=== PATIENT | female | born 1935 | race Caucasian/White ===

== ENCOUNTER 2018-12-04 11:28 | Emergency (ER) | payer MEDICARE ==
[2018-12-04 11:48] VITALS: O2SAT 100
--- NOTE | 2018-12-04 12:02 | ERPHSYRPT ---
- History of Present Illness Time Seen by Provider: 12/04/18 11:45 Source: patient, EMS Exam Limitations: no limitations Patient Subjective Stated Complaint: Dialysis center [facility] states "She missed last tue and tuesday and came for dialysis today. She stated she missed due to haveing rectal bleeding. She is 7 kg over her weight and we took off 3.5 L but she kind of passed out so we gave her 1 L back. Now she is awake and complaining of chest pain and difficulty breathing.". PT stated "I am a little dizzy. I do not hurt anymore. I have had rectal bleeding all week." Triage Nursing Assessment: Pt presented VIA SCAT 2 and placed in room 3. PT presented alert and oriented X 3, skin pale, cool, dry. Pt able to speak in clear full sentences Pt in no apparent respiratory distress. Physician History: 83 y/o white female with renal failure on dialysis presents after syncopal episode following dialysis removal of 3.5 liters. pt given back one liter of fluid. symptoms improve but then pt complained of mild soa and mild nonradiating central substernal cp. these sx have resolved. pt did miss dialysis last week because of rectal bleeding. pt is a resident from [facility]. her pcp is dr. Mendenhall, director payment dr. 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 Arambula. Witnessed: other (by healthcare providers at dialysis center) Prior Episodes: single episode today Timing/Duration: today Precipitating Factors: other (dialysis) Loss of Consciousness: no loss of consciousness Charcter of event(s): almost passed out Allergies/Adverse Reactions: metformin Allergy (Unknown, Verified 01/28/15 06:27) ketorolac tromethamine [From Toradol] Allergy (Verified 01/28/15 06:27) Hives adhesive Adverse Reaction (Verified 01/28/15 06:27) Blisters Home Medications: Gabapentin 300 mg [Neurontin 300 mg] 300 mg PO UD 02/09/13 [History] Multivitamin [Multi-Vitamin Daily] 1 each PO DAILY 02/09/13 [History] Atorvastatin Calcium [Lipitor] 80 mg PO DAILY 02/12/13 [History] Apixaban [Eliquis] 2.5 mg PO BID 06/07/14 [History] Furosemide 120 mg PO UD 06/07/14 [History] PANTOPRAZOLE 40 mg Tablet [Protonix 40MG Tablet] 40 mg PO DAILY 06/07/14 [ History] Potassium Chloride 10 Meq Tab* [Klor Con 10 MEQ] 10 meq PO UD 06/07/14 [ History] Acetaminophen 325 mg [Tylenol 325 mg] 2 tab PO Q4HPRN PRN 01/28/15 [ History] Albuterol 2.5 mg/3 ml Neb [Proventil 2.5 mg/3 ml Neb] 1.25 mg IH Q4HPRN PRN 01/28/15 [History] Docusate Sodium 100 mg [Colace 100 MG] 100 mg PO DAILY PRN 01/28/15 [ History] Fluticasone Propionate [Flonase Nasal] 1 spray IN DAILY 01/28/15 [History] Hydrocodone Bit/Acetaminophen [Fre[place] 5-325 Tablet] 1 - 2 tab PO Q4HPRN PRN 01/28 [History] Ipratropium/Albuterol Sulfate [Combivent Respimat Common Canister] 1 puff IH BID 01/28/15 [History] Nitroglycerin 0.4 mg Tablet [Nitrostat 0.4 MG Tablet] 0.4 mg SL UD [History] Ondansetron HCl [Zofran] 4 mg PO Q4HPRN PRN 01/28/15 [History] Sertraline HCl 50 mg [Zoloft 50 mg Tablet] 50 mg PO HS 01/28/15 [History] Sevelamer Carbonate [Renvela] 800 mg PO TID 01/28/15 [History] Sodium Chloride [Saline Nasal Gideon] 30 ml NS QID PRN 01/28/15 [History] raNITIdine HCl [Ranitidine HCl] 150 mg PO DAILY 01/28/15 [History] Hx Tetanus, Diphtheria Vaccination/Date Given: No Hx Influenza Vaccination/Date Given: Yes Hx Pneumococcal Vaccination/Date Given: Yes Immunizations Up to Date: Yes - Past Medical History Pertinent Past Medical History: Yes Neurological History: No Pertinent History, Peripheral Neuropathy ENT History: No Pertinent History Cardiac History: Angina, Arrhythmia, Coronary Artery Disease, Hypertension, Myocardial Infarction ([place]) Respiratory History: Asthma, CHF, COPD, Emphysema, Sleep Apnea Endocrine Medical History: Diabetes Type II Musculoskeletal History: No Pertinent History GI Medical History: Colitis, Esophageal Disorder, GERD History: Dialysis, Other Psycho-Social History: Depression Female Reproductive Disorders: No Pertinent History Other Medical History: Abdominal aortic aneursym - Past Surgical History Past Surgical History: Yes Neuro Surgical History: No Pertinent History Cardiac: No Pertinent History Respiratory: No Pertinent History Gastrointestinal: No Pertinent History Genitourinary: No Pertinent History Musculoskeletal: No Pertinent History Female Surgical History: No Pertinent History Other Surgical History: Ruptured cyst on ovary. Dialysis fistula placed in left arm. Vocal cord cystBreast surgery on inverted nipples - Social History Smoking Status: Former smoker Exposure to second hand smoke: No Drug Use: none Patient Lives Alone: No - Female History Hx Now: No - Review of Systems Constitutional: Weakness Eyes: No Symptoms Ears, Nose, & Throat: No Symptoms Respiratory: No Symptoms Cardiac: Syncope Abdominal/Gastrointestinal: No Symptoms Genitourinary Symptoms: No Symptoms Musculoskeletal: No Symptoms Skin: No Symptoms Neurological: Lethargy Psychological: No Symptoms Endocrine: No Symptoms Hematologic/Lymphatic: No Symptoms Immunological/Allergic: No Symptoms All Other Systems: Reviewed and Negative Physical Exam - Nursing Vital Signs Nursing Vital Signs: Initial Vital Signs Temperature 98.1 F 12/04/18 11:29 Pulse Rate 102 H 12/04/18 11:29 Respiratory Rate 22 12/04/18 11:29 Blood Pressure 105/74 12/04/18 11:29 O2 Sat by Pulse Oximetry 100 12/04/18 11:29 Pain Scale Pain Intensity 0 - Justin Coma Scale Best Eye Response (Milner): (4) open spontaneously Best Verbal Response (Justin): (5) oriented Best Motor Response (Justin): (6) obeys commands Justin Total: 15 - Physical Exam General Appearance: lethargy (rousable and answers questions appropriately), obese Eye Exam: bilateral eye: normal inspection, PERRL, EOMI Ears, Nose, Throat Exam: normal ENT inspection, dry mucous membranes Neck Exam: normal inspection, non-tender, supple, full range of motion Respiratory: normal breath sounds, chest tenderness (brief episode. 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 new prolonged qrs. no acute ischemic changes. st segment changes have resolved. ) Ordered Tests: Active Orders 24 hr Category Date Time Status EKG-ER Only STAT Care 12/04/18 12:02 Active IV Insertion STAT Care 12/04/18 12:02 Active CBC W DIFF Stat Lab 12/04/18 12:25 Completed CMP Stat Lab 12/04/18 12:25 Completed Manual Differential NC Stat Lab 12/04/18 12:25 Completed PROTIME WITH INR Stat Lab 12/04/18 12:25 Completed TROPONIN Q3H Lab 12/04/18 12:25 Completed TROPONIN Q3H Lab 12/04/18 15:15 Ordered TROPONIN Q3H Lab 12/04/18 18:15 Ordered TROPONIN Q3H Lab 12/04/18 21:15 Ordered TROPONIN Q3H Lab 12/05/18 00:15 Ordered Medication Summary Generic Name Dose Route Start Last Admin Trade Name Juanq PRN Reason Stop Dose Admin Sodium Chloride 1,000 mls @ 50 mls/hr 12/04/18 12:15 12/04/18 12:06 Sodium Chloride 0.9% 1000 Ml IV 01/03/19 12:14 50 mls/hr .Q20H MATTHEW Administration Lab/Rad Data: Laboratory Result Diagrams 12/04/18 12:25 12/04/18 12:25 Laboratory Results 12/04/18 12/04/18 12/04/18 Range/Units 12:25 12:25 12:25 WBC (4.0-10.5) K/mm3 RBC (4.1-5.4) M/mm3 Hgb (12.0-16.0) gm/dl Hct (35-47) % MCV (78-100) fl MCH (26-32) pg MCHC (32-36) g/dl RDW (11.5-14.0) % Plt Count (150-450) K/mm3 MPV (6-9.5) fl PT 25.2 H (9.95-12.35) SECONDS INR 2.19 (0.8-3.0) Sodium (137-145) mmol/L Potassium (3.5-5.1) mmol/L Chloride (98-107) mmol/L Carbon Dioxide (22-30) mmol/L Anion Gap (5-15) MEQ/L BUN (7-17) mg/dL Creatinine (0.52-1.04) mg/dL Estimated GFR ML/MIN Glucose (74-106) mg/dL Calcium (8.4-10.2) mg/dL Total Bilirubin (0.2-1.3) mg/dL AST (14-36) U/L ALT (0-35) U/L Alkaline Phosphatase (38-126) U/L Troponin I 0.059 H* (0.000-0.034) ng/mL Serum Total Protein (6.3-8.2) g/dL Albumin (3.5-5.0) g/dL Crossmatch Pending 12/04/18 12/04/18 Range/Units 12:25 12:25 WBC 10.5 (4.0-10.5) K/mm3 RBC 2.12 L (4.1-5.4) M/mm3 Hgb 5.9 L* (12.0-16.0) gm/dl Hct 20.2 L (35-47) % MCV 95.3 (78-100) fl MCH 27.8 (26-32) pg MCHC 29.2 L (32-36) g/dl RDW 16.6 H (11.5-14.0) % Plt Count 166 (150-450) K/mm3 MPV 11.5 H (6-9.5) fl PT (9.95-12.35) SECONDS INR (0.8-3.0) Sodium 137 (137-145) mmol/L Potassium 3.4 L (3.5-5.1) mmol/L Chloride 96 L (98-107) mmol/L Carbon Dioxide 31 H (22-30) mmol/L Anion Gap 13.5 (5-15) MEQ/L BUN 25 H (7-17) mg/dL Creatinine 2.54 H (0.52-1.04) mg/dL Estimated GFR 19.3 ML/MIN Glucose 192 H (74-106) mg/dL Calcium 8.3 L (8.4-10.2) mg/dL Total Bilirubin 0.50 (0.2-1.3) mg/dL AST 19 (14-36) U/L ALT 10 (0-35) U/L Alkaline Phosphatase 55 (38-126) U/L Troponin I (0.000-0.034) ng/mL Serum Total Protein 6.2 L (6.3-8.2) g/dL Albumin 3.7 (3.5-5.0) g/dL Crossmatch - Progress Progress: unchanged, re-examined Discussed with DrReema: Other ( ) Will see patient in: hospital (observation) (at 1315. reviewed pt hx, condition , lab and ekg results. agrees with prbc transfusion and tranfer to [facility]) - Departure Departure Disposition: Transfer Clinical Impression: Symptomatic anemia, Renal failure, Elevated troponin I level Condition: Fair Critical Care Time: Yes Critical Care Time(excluding separately billable procedures): Critical 30-74 mins Referrals: VIPUL NOVOA [Primary Care Provider] -
[2018-12-04] MEDS ORDERED: Sodium Chloride 0.9% 1000 ML 1,000 ML ONE (12:04)
[2018-12-04] MEDS ORDERED: Sodium Chloride 0.9% 1000 ML 1,000 ML IV SCH (12:15)
[2018-12-04 12:35] LABS: Hematocrit 20.2 % (35-47); Mean Cell Volume 95.3 fl (78-100); Mean Corpuscular Hemoglobin 27.8 pg (26-32); Mean Corpuscular Hgb Concent. 29.2 g/dl (32-36); Mean Platelet Volume 11.5 fl (6-9.5); Platelet Count 166 K/mm3 (150-450); Red Blood Count 2.12 M/mm3 (4.1-5.4); Red Cell Distribution Width 16.6 % (11.5-14.0); White Blood Count 10.5 K/mm3 (4.0-10.5)
[2018-12-04 12:40] LABS: Hemoglobin 5.9 gm/dl (12.0-16.0)
[2018-12-04 12:43] LABS: INR 2.19 (0.8-3.0); PROTIME 25.2 SECONDS (9.95-12.35)
[2018-12-04 12:48] LABS: ALBUMIN 3.7 g/dL (3.5-5.0); ANION GAP 13.5 MEQ/L (5-15); BILIRUBIN,TOTAL 0.5 mg/dL (0.2-1.3); Calcium 8.3 mg/dL (8.4-10.2); Creatinine 1 2.54 mg/dL (0.52-1.04); Potassium 3.4 mmol/L (3.5-5.1); Total Protein 6.2 g/dL (6.3-8.2)
[2018-12-04 13:17] LABS: ABO TYPING A; Antibody Screen NEGATIVE (NEGATIVE); RH TYPING POSITIVE
[2018-12-04 13:19] LABS: CROSS MATCH (PRBC) COMPATIBLE (COMPATIBLE)
[2018-12-04 13:53] LABS: BAND 2 % (0.0-2.0); Eosinophil 2 % (0.00-3.0); Lymphocytes 7 % (24-44); Monocyte 2 % (0.0-12.0); Neutrophils 87 % (36.0-66.0); Total Cells Counted 100
[2018-12-04 13:54] VITALS: BP 153/83; PULSE 84
[2018-12-04 13:56] LABS: ANISOCYTOSIS 1+; Platelet Estimate NORMAL (NORMAL); Polychromasia 1+
[2018-12-04 13:57] LABS: Basophilic Stippling 1+; Granulocyte Absolute (ANC) 9.31 (1.4-6.9)
== END 2018-12-04 15:00 | disposition short-term general hospital (02) ==
LOC: ED 11:28
DX: D64.9 Anemia, unspecified (principal); I12.9 Hypertensive chronic kidney disease with stage 1 through stage 4 chronic kidney disease, or unspecified chronic kidney disease; R74.8 Abnormal levels of other serum enzymes; Z99.2 Dependence on renal dialysis; Z79.01 Long term (current) use of anticoagulants; Z79.899 Other long term (current) drug therapy; G62.9 Polyneuropathy, unspecified; I25.10 Atherosclerotic heart disease of native coronary artery without angina pectoris; E11.9 Type 2 diabetes mellitus without complications; I25.2 Old myocardial infarction; I50.9 Heart failure, unspecified; G47.30 Sleep apnea, unspecified; J45.909 Unspecified asthma, uncomplicated; K21.9 Gastro-esophageal reflux disease without esophagitis
CPT/HCPCS: 36430; 80053; 84484; 85025; 85610; 86850; 86900; 86901; 86922; 93005; 96360; 96361; 99291; P9016; 36000; 36415; 99285

== ENCOUNTER 2019-09-10 15:51 | Emergency (ER) | payer MEDICARE ==
--- NOTE | 2019-09-10 16:42 | ERPHSYRPT ---
- History of Present Illness Historian: patient Exam Limitations: no limitations Patient Subjective Stated Complaint: pt to ER with complaints of abdominal pain on the R side since yesterday. pt states she went to dialysis today and is still having pain. pt denies fever or N/V. Triage Nursing Assessment: pt A&Ox4. pt arrived via ambulance. pt on O2 2L all the time. pt skin pwd. Physician History: 84 yo wf from [place] presents w R posterior thoracic pain and RLQ pain x 2 days. Pt underwent dialysis today wo problems. Pt is nauseated but denies V/D/melena/ hematochezia/chest pain/dyspnea/dysuria/hematuria/fever. Pain is worse w deep inspiration. Timing/Duration: other (2 days) Activities at Onset: rest Quality: other (Unable to describe) Abdominal Pain Onset Location: RUQ, other (R posterior thorax) Pain Radiation: no radiation Severity of Pain-Max: severe Severity of Pain-Current: severe Modifying Factors: Improves With: breathing Associated Symptoms: back, No chest pain, No diaphoresis, No diarrhea, No fever/ chills, No fatigue, No headache, No heartburn, No loss of appetite, No nausea, No neck pain, No rash, No shortness of breath, No syncope, No vomiting, No weakness Previous symptoms: no prior history Allergies/Adverse Reactions: metformin Allergy (Unknown, Verified 09/10/19 16:06) ketorolac tromethamine [From Toradol] Allergy (Verified 09/10/19 16:06) Hives adhesive Adverse Reaction (Verified 09/10/19 16:06) Blisters Home Medications: Gabapentin 300 mg [Neurontin 300 mg] 300 mg PO UD 02/09/13 [History] Atorvastatin Calcium [Lipitor] 80 mg PO DAILY 02/12/13 [History] Furosemide 120 mg PO UD 06/07/14 [History] Acetaminophen 325 mg [Tylenol 325 mg] 2 tab PO Q4HPRN PRN 01/28/15 [ History] Docusate Sodium 100 mg [Colace 100 MG] 100 mg PO DAILY PRN 01/28/15 [ History] Fluticasone Propionate [Flonase Nasal] 1 spray IN DAILY 01/28/15 [History] Nitroglycerin 0.4 mg Tablet [Nitrostat 0.4 MG Tablet] 0.4 mg SL UD [History] Ondansetron HCl [Zofran] 4 mg PO Q4HPRN PRN 01/28/15 [History] Sertraline HCl 50 mg [Zoloft 50 mg Tablet] 50 mg PO HS 01/28/15 [History] Sevelamer Carbonate [Renvela] 800 mg PO TID 01/28/15 [History] Bismuth Subsalicylate [Bismatrol] 262 mg PO DAILY 09/10/19 [History] Fluticasone/Vilanterol [Breo Ellipta 100-25 Mcg INH] 1 puff PO DAILY 09/10/19 [ History] Gabapentin 600 mg PO DAILY 09/10/19 [History] Glucagon 1 mg [GlucaGen 1 MG] 1 mg IM STAT PRN 09/10/19 [History] Loratadine 10 mg PO DAILY 09/10/19 [History] Magnesium Oxide 400 mg PO DAILY 09/10/19 [History] Ondansetron ODT 4 MG [Zofran Odt 4 mg] 4 mg PO DAILY PRN PRN 09/10/19 [ History] Sertraline HCl 75 mg PO DAILY 09/10/19 [History] Hx Tetanus, Diphtheria Vaccination/Date Given: Yes Hx Influenza Vaccination/Date Given: Yes Hx Pneumococcal Vaccination/Date Given: Yes Immunizations Up to Date: Yes Travel Risk - International Travel Have you traveled outside of the country in past 3 weeks: No Have you or anyone close to you been diagnosed with or: No Do your reside in a community with a known COVID-19 case?: Yes If Yes where:: [facility] Coronavirus Screening Has patient experienced Coronavirus symptoms: No - Review of Systems Constitutional: No Symptoms Eyes: No Symptoms Ears, Nose, & Throat: No Symptoms Respiratory: No Symptoms Cardiac: No Symptoms Abdominal/Gastrointestinal: No Symptoms Genitourinary Symptoms: No Symptoms Musculoskeletal: No Symptoms Skin: No Symptoms Neurological: No Symptoms Psychological: No Symptoms Endocrine: No Symptoms Hematologic/Lymphatic: No Symptoms Immunological/Allergic: No Symptoms - Past Medical History Pertinent Past Medical History: Yes Neurological History: No Pertinent History, Peripheral Neuropathy ENT History: No Pertinent History Cardiac History: Angina, Arrhythmia, Coronary Artery Disease, Hypertension, Myocardial Infarction ([place]) Respiratory History: Asthma, CHF, COPD, Emphysema, Sleep Apnea Endocrine Medical History: Diabetes Type II Musculoskeletal History: No Pertinent History GI Medical History: Colitis, Esophageal Disorder, GERD History: Dialysis, Other Psycho-Social History: Depression Female Reproductive Disorders: No Pertinent History Other Medical History: Abdominal aortic aneursym - Past Surgical History Past Surgical History: Yes Neuro Surgical History: No Pertinent History Cardiac: No Pertinent History Respiratory: No Pertinent History Gastrointestinal: No Pertinent History Genitourinary: No Pertinent History Musculoskeletal: No Pertinent History Female Surgical History: No Pertinent History Other Surgical History: Ruptured cyst on ovary. Dialysis fistula placed in left arm. Vocal cord cystBreast surgery on inverted nipples - Social History Smoking Status: Former smoker Exposure to second hand smoke: No Drug Use: none Patient Lives Alone: No - Female History Hx Now: No - Nursing Vital Signs Nursing Vital Signs: Initial Vital Signs Temperature 98.6 F 09/10/19 15:56 Pulse Rate 85 09/10/19 15:56 Respiratory Rate 18 09/10/19 15:56 Blood Pressure 132/72 09/10/19 15:56 O2 Sat by Pulse Oximetry 97 09/10/19 15:56 Pain Scale Pain Intensity 4 - Physical Exam General Appearance: no apparent distress Eye Exam: PERRL/EOMI, eyes nml inspection Ears, Nose, Throat Exam: normal ENT inspection, TMs normal, pharynx normal, moist mucous membranes Neck Exam: normal inspection, non-tender, supple, full range of motion, No meningismus Respiratory Exam: other (Rales bases B), No respiratory distress Cardiovascular Exam: regular rate/rhythm, other (2/6 DONN) Gastrointestinal/Abdomen Exam: other (Obese/Soft/RUQ TTP>LLQ TTP/No guarding or rebound) Back Exam: normal inspection Neurologic Exam: alert, oriented x 3, cooperative, retirement manager II-XII nml as tested, normal mood/affect, nml cerebellar function, sensation nml, No motor deficits Skin Exam: normal color, warm Lymphatic Exam: No adenopathy SpO2: 97 O2 Delivery: Room Air - Course EKG Interpreted by Me: RATE (Afib/RBBB/Increased QT-QTc/Inverted T waves) - CT Exams Chest CT Interpretation: Discussed w/radiologist (New R supra-hilar mass/Paratrachael adenopathy) Abdomen/Pelvis CT Interpretation: Discussed w/radiologist (AAA 5.8x6) Ordered Tests: Active Orders 24 hr Category Date Time Status EKG-ER Only STAT Care 09/10/19 19:23 Active ABDOMEN AND PELVIS W/0 CONTRAS [CT] Stat Exams 09/10/19 16:15 Taken CHEST WITHOUT CONTRAST [CT] Stat Exams 09/10/19 16:15 Taken AMYLASE Stat Lab 09/10/19 16:45 Completed CBC W DIFF Stat Lab 09/10/19 16:45 Completed CMP Stat Lab 09/10/19 16:45 Completed CULTURE,URINE Stat Lab 09/10/19 16:45 Received LIPASE Stat Lab 09/10/19 16:45 Completed Lactic Acid Stat Lab 09/10/19 16:34 Completed TROPONIN Q3H Lab 09/10/19 16:45 Completed TROPONIN Q3H Lab 09/10/19 19:05 Completed TROPONIN Q3H Lab 09/10/19 22:15 Ordered TROPONIN Q3H Lab 09/11/19 01:15 Ordered TROPONIN Q3H Lab 09/11/19 04:15 Ordered UA W/RFX UR CULTURE Stat Lab 09/10/19 16:45 Completed Medication Summary Discontinued Medications Generic Name Dose Route Start Last Admin Trade Name Freq PRN Reason Stop Dose Admin Fentanyl Citrate 25 mcg 09/10/19 19:35 09/10/19 19:39 Sublimaze 100 Mcg/2 Ml IV 09/10/19 19:36 25 mcg STAT ONE Administration Ondansetron HCl 4 mg 09/10/19 19:35 09/10/19 19:38 Zofran 4 Mg/2 Ml Vial IV 09/10/19 19:36 4 mg STAT ONE Administration Lab/Rad Data: Laboratory Result Diagrams 09/10/19 16:45 09/10/19 16:45 Laboratory Results 09/10/19 09/10/19 09/10/19 Range/Units 19:05 16:45 16:45 WBC (4.0-10.5) K/mm3 RBC (4.1-5.4) M/mm3 Hgb (12.0-16.0) gm/dl Hct (35-47) % MCV (78-100) fl MCH (26-32) pg MCHC (32-36) g/dl RDW (11.5-14.0) % Plt Count (150-450) K/mm3 MPV (7.5-11.0) fl Gran % (36.0-66.0) % Eos # (Auto) (0-0.5) Absolute Lymphs (auto) (1.0-4.6) Absolute Monos (auto) (0.0-1.3) Lymphocytes % (24.0-44.0) % Monocytes % (0.0-12.0) % Eosinophils % (0.00-5.0) % Basophils % (0.0-0.4) % Absolute Granulocytes (1.4-6.9) Basophils # (0-0.4) Sodium (137-145) mmol/L Potassium (3.5-5.1) mmol/L Chloride (98-107) mmol/L Carbon Dioxide (22-30) mmol/L Anion Gap (5-15) MEQ/L BUN (7-17) mg/dL Creatinine (0.52-1.04) mg/dL Estimated GFR ML/MIN Glucose (74-106) mg/dL Lactic Acid (0.4-2.0) Calcium (8.4-10.2) mg/dL Total Bilirubin (0.2-1.3) mg/dL AST (14-36) U/L ALT (0-35) U/L Alkaline Phosphatase (38-126) U/L Troponin I 0.059 H* 0.060 H* (0.000-0.034) ng/mL Serum Total Protein (6.3-8.2) g/dL Albumin (3.5-5.0) g/dL Amylase (30-110) U/L Lipase (23-300) U/L Urine Color YELLOW (YELLOW) Urine Appearance TURBID (CLEAR) Urine pH 7.0 (5-6) Ur Specific [place] 1.019 (1.005-1.025) Urine Protein 100 (Negative) Urine Ketones NEGATIVE (NEGATIVE) Urine Blood SMALL (0-5) Hemal/ul Urine Nitrite NEGATIVE (NEGATIVE) Urine Bilirubin SMALL (NEGATIVE) Urine Urobilinogen NEGATIVE (0-1) mg/dL Ur Leukocyte Esterase MODERATE (NEGATIVE) Urine WBC (Auto) >100 (0-5) /HPF Urine RBC (Auto) 6-10 (0-2) /HPF U Epithel Cells (Auto) RARE (FEW) /HPF Urine Bacteria (Auto) MANY (NEGATIVE) /HPF Urine Mucus (Auto) SLIGHT (NEGATIVE) /HPF Urine Culture Reflexed YES (NO) Urine Glucose NEGATIVE (NEGATIVE) mg/dL Slides for Path Review 09/10/19 09/10/19 09/10/19 Range/Units 16:45 16:45 16:34 WBC 5.6 (4.0-10.5) K/mm3 RBC 3.81 L (4.1-5.4) M/mm3 Hgb 10.9 L (12.0-16.0) gm/dl Hct 35.9 (35-47) % MCV 94.2 (78-100) fl MCH 28.6 (26-32) pg MCHC 30.4 L (32-36) g/dl RDW 15.8 H (11.5-14.0) % Plt Count 123 L (150-450) K/mm3 MPV 11.3 H (7.5-11.0) fl Gran % 76.3 H (36.0-66.0) % Eos # (Auto) 0.13 (0-0.5) Absolute Lymphs (auto) 0.57 L (1.0-4.6) Absolute Monos (auto) 0.60 (0.0-1.3) Lymphocytes % 10.2 L (24.0-44.0) % Monocytes % 10.7 (0.0-12.0) % Eosinophils % 2.3 (0.00-5.0) % Basophils % 0.5 (0.0-0.4) % Absolute Granulocytes 4.26 (1.4-6.9) Basophils # 0.03 (0-0.4) Sodium 138 (137-145) mmol/L Potassium 3.3 L (3.5-5.1) mmol/L Chloride 95 L (98-107) mmol/L Carbon Dioxide 36 H (22-30) mmol/L Anion Gap 10.6 (5-15) MEQ/L BUN 17 (7-17) mg/dL Creatinine 2.79 H (0.52-1.04) mg/dL Estimated GFR 17.3 ML/MIN Glucose 207 H (74-106) mg/dL Lactic Acid 1.8 (0.4-2.0) Calcium 8.8 (8.4-10.2) mg/dL Total Bilirubin 0.50 (0.2-1.3) mg/dL AST 31 (14-36) U/L ALT 11 (0-35) U/L Alkaline Phosphatase 122 (38-126) U/L Troponin I (0.000-0.034) ng/mL Serum Total Protein 7.1 (6.3-8.2) g/dL Albumin 4.0 (3.5-5.0) g/dL Amylase 101 (30-110) U/L Lipase 103 (23-300) U/L Urine Color (YELLOW) Urine Appearance (CLEAR) Urine pH (5-6) Ur Specific [place] (1.005-1.025) Urine Protein (Negative) Urine Ketones (NEGATIVE) Urine Blood (0-5) Hemal/ul Urine Nitrite (NEGATIVE) Urine Bilirubin (NEGATIVE) Urine Urobilinogen (0-1) mg/dL Ur Leukocyte Esterase (NEGATIVE) Urine WBC (Auto) (0-5) /HPF Urine RBC (Auto) (0-2) /HPF U Epithel Cells (Auto) (FEW) /HPF Urine Bacteria (Auto) (NEGATIVE) /HPF Urine Mucus (Auto) (NEGATIVE) /HPF Urine Culture Reflexed (NO) Urine Glucose (NEGATIVE) mg/dL Slides for Path Review YES - Progress Progress: unchanged Progress Note: 09/10/19 19:[address] Escoto for eval of new R supra-hilar mass/enlarging AAA/ elevated trop, most likely duer to CRF Pt given 25umg IV fentanyl-4mg IV zofran 09/10/19 20:40 Pt transferred to ambulance service to [facility] in stable condition - Departure Departure Disposition: Transfer Clinical Impression: Lung mass, AAA (abdominal aortic aneurysm) without rupture, Elevated troponin, UTI (urinary tract infection) Condition: Stable Critical Care Time: No Referrals: VIPUL NOVOA [Primary Care Provider] -
[2019-09-10 16:55] LABS: Absolute Neutrophil Ct (ANC) 4.26 (1.4-6.9); BASOPHIL % 0.5 % (0.0-0.4); Basophil (Absolute #) 0.03 (0-0.4); Eosinophil % 2.3 % (0.00-5.0); Eosinophil (Absolute #) 0.13 (0-0.5); Hematocrit 35.9 % (35-47); Hemoglobin 10.9 gm/dl (12.0-16.0); Lymphocyte (Absolute #) 0.57 (1.0-4.6); Lymphocytes % 10.2 % (24.0-44.0); Mean Cell Volume 94.2 fl (78-100); Mean Corpuscular Hemoglobin 28.6 pg (26-32); Mean Corpuscular Hgb Concent. 30.4 g/dl (32-36); Mean Platelet Volume 11.3 fl (7.5-11.0); Monocytes % 10.7 % (0.0-12.0); Neutrophil % 76.3 % (36.0-66.0); Platelet Count 123 K/mm3 (150-450); Red Blood Count 3.81 M/mm3 (4.1-5.4); Red Cell Distribution Width 15.8 % (11.5-14.0); White Blood Count 5.6 K/mm3 (4.0-10.5)
[2019-09-10 16:59] LABS: Appearance TURBID (CLEAR); Bacteria MANY /HPF (NEGATIVE); Bilirubin SMALL (NEGATIVE); Blood SMALL Ery/ul (0-5); Epithelial Cells RARE /HPF (FEW); Glucose NEGATIVE (NEGATIVE); Ketones NEGATIVE (NEGATIVE); Leukocyte Esterase MODERATE (NEGATIVE); Mucus SLIGHT /HPF (NEGATIVE); Nitrite NEGATIVE (NEGATIVE); Protein,Urine Dip 100 (Negative); Specific Gravity 1.019 (1.005-1.025); Urobilinogen NEGATIVE mg/dL (0-1); WBC >100 /HPF (0-5)
[2019-09-10 17:05] LABS: ANION GAP 10.6 MEQ/L (5-15); BILIRUBIN,TOTAL 0.5 mg/dL (0.2-1.3); Calcium 8.8 mg/dL (8.4-10.2); Creatinine 1 2.79 mg/dL (0.52-1.04); Potassium 3.3 mmol/L (3.5-5.1); Total Protein 7.1 g/dL (6.3-8.2)
[2019-09-10 18:01] LABS: Slide Review 1 YES
[2019-09-10] MEDS ORDERED: SUBLIMAZE 100 MCG/2 ML IV ONE (19:35)
[2019-09-10] MEDS ORDERED: Zofran 4 MG/2 ML VIAL IV ONE (19:35)
[2019-09-10 20:07] VITALS: BP 136/64; PULSE 72
[2019-09-10 20:41] VITALS: O2SAT 97
--- NOTE | 2019-09-11 08:39 | XRAY ---
Indication: Thoracic and abdomen pain 2 days. No known injury. Multiple contiguous axial images obtained through the chest without contrast as ordered. Comparison: April 24, 2019. Lungs again demonstrate diffuse pulmonary emphysema with scattered pleural-parenchymal fibrosis/scarring and mild bilateral subpleural honeycombing. New irregular right suprahilar noncalcified mass measuring 2.5 x 3.6 x 3.1 cm worrisome for malignancy. No infiltrate or effusion. Heart remains enlarged with stable left dual-lead pacemaker. Stable diffuse scattered aortic and chronic calcifications. New matted paratracheal lymphadenopathy, largest 3.4 x 3.7 cm probably metastatic. Stable right perihilar calcified nodes. Bony thorax again demonstrates osteopenia, degenerative changes throughout the spine, and old bilateral rib fractures. CT abdomen/pelvis reported separately. Impression: 1. New right suprahilar mass concerning for malignancy. 2. New paratracheal lymphadenopathy probably metastatic. 3. Stable cardiomegaly, pulmonary emphysema, pleural-parenchymal fibrosis/scarring, arteriosclerotic disease, chronic bony findings, and evidence for old granulomatous disease.
--- NOTE | 2019-09-11 08:49 | XRAY ---
Indication: Thoracic abdomen pain 2 days. No known injury. Multiple contiguous axial images obtained through the abdomen and pelvis without contrast as ordered. Comparison: January 10, 2006. CT chest reported separately. Noncontrasted stomach and bowel loops appear nonobstructed. Stable descending duodenal diverticulum. Appendix not seen. There is now mild diffuse scattered colonic fecal debris throughout. Previous reported cholecystectomy and hysterectomy. No free fluid/air. 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 New aortobiiliac stent graft and left renal artery stent graft. Femoral to femoral bypass graft not imaged on previous exam. Lack of IV contrast precludes further characterization or graft patency. Left kidney is now atrophic concerning for occluded renal stent graft. A few bilateral renal cysts, largest left lower pole measuring 2.3 cm. Stable hepatic/splenic calcified granulomas. Remaining liver, pancreas, spleen, adrenal glands, kidneys, ureters, and bladder appear unremarkable for noncontrast exam. Osseous structures again demonstrate osteopenias, worsening moderate degenerative changes throughout the thoracolumbar spine, and stable mild lumbar dextroscoliosis. Impression: 1. Interval enlarging AAA with measurements above. New aortobiiliac, left renal artery, and femoral-femoral bypass stent grafts. Lack of IV contrast precludes further characterization or graft patency. Suspect occluded left renal artery stent graft as the left kidney is now atrophic. 2. New bilateral renal cysts. 3. Mild diffuse fecal stasis without obstruction. 4. Again incidental duodenal diverticulum, chronic bony findings, and evidence for old granulomatous disease.
== END 2019-09-10 20:37 | disposition short-term general hospital (02) ==
LOC: ED 15:51
DX: R91.8 Other nonspecific abnormal finding of lung field (principal); I71.4 Abdominal aortic aneurysm, without rupture; R74.8 Abnormal levels of other serum enzymes; N39.0 Urinary tract infection, site not specified; Z99.2 Dependence on renal dialysis; Z79.899 Other long term (current) drug therapy; G62.9 Polyneuropathy, unspecified; E11.9 Type 2 diabetes mellitus without complications; I25.10 Atherosclerotic heart disease of native coronary artery without angina pectoris; K21.9 Gastro-esophageal reflux disease without esophagitis; I12.9 Hypertensive chronic kidney disease with stage 1 through stage 4 chronic kidney disease, or unspecified chronic kidney disease; N18.9 Chronic kidney disease, unspecified; I25.2 Old myocardial infarction; J45.909 Unspecified asthma, uncomplicated; I50.9 Heart failure, unspecified; J44.9 Chronic obstructive pulmonary disease, unspecified; G47.30 Sleep apnea, unspecified
CPT/HCPCS: 36415; 71250; 74176; 80053; 81001; 82150; 83605; 83690; 84484; 85025; 87077; 87086; 93005; 96374; 96375; 99285; J2405; J3010